=== PATIENT | female | born 1950 | race Caucasian/White ===

== ENCOUNTER 2018-12-12 13:00 | Inpatient (IN) | payer OTHER ==
[~2018-12-12] VITALS: Ht 157.5 cm; Wt 65.3 kg
[2018-12-12] MEDS ORDERED: GLIPIZIDE ER2.5 MG (13:32)
[2018-12-12] MEDS ORDERED: GLUCOTROL10 MG (13:32)
[2018-12-12] MEDS ORDERED: SYNTHROID75 MCG (13:32)
--- NOTE | 2018-12-12 13:32 | NUR ---
PACIENTE ALERTA Y ORIENTADA EN CONCHIS ESFERAS REFIERE DOLOR ABDOMINAL HACE CHEUNG. PACIENTE DIAGNOSTICADA RECIENTEMENTE CON CANCER DE COLON. PACIENTE DE DR SCOTT CEDEÑO.
[2018-12-12] MEDS ORDERED: COZAAR25 MG (13:33)
--- NOTE | 2018-12-12 17:19 | NUR ---
SE EDUCA A PTE SOBRE [place] MEDICO ESTA REFIERE ENTENDER. SE PAPITO MUESTRAS DE LABORATORIO UTILIZANDO MEDIDAS ASEPTICAS. SE NOTIFICA ESTUDIO DE PLACA PENDIENTE A REALIZAR.
[2018-12-19] MEDS ORDERED: PERCOCET 5-3251 EACH PO (10:49)
[2018-12-19] MEDS ORDERED: HYOSCYAMINE0.125 M1 SL (10:50)
[2018-12-19] MEDS ORDERED: INTESTINEX680 M1 PO (10:50)
== END 2018-12-19 12:44 | disposition home or self-care (01) | DRG 330 ==
LOC: ER 13:00 → SURG 16:52 → SEC-K 16:52 → SURG 17:52
PROVIDERS: ADMIT Surgery
PROC: 07TB4ZZ Resection of Mesenteric Lymphatic, Percutaneous Endoscopic Approach (ICD-10-PCS; 2018-12-14)
PROC: 0DTF4ZZ Resection of Right Large Intestine, Percutaneous Endoscopic Approach (ICD-10-PCS; principal; 2018-12-14 13:30)
DX: C18.2 Malignant neoplasm of ascending colon (principal); K56.690 Other partial intestinal obstruction; R50.82 Postprocedural fever; R59.0 Localized enlarged lymph nodes; I10 Essential (primary) hypertension; E03.8 Other specified hypothyroidism; E11.65 Type 2 diabetes mellitus with hyperglycemia; E78.49 Other hyperlipidemia

== ENCOUNTER 2020-01-04 10:16 | Day surgery (SDC) | payer OTHER ==
[~2020-01-04 10:16] MED LIST: COZAAR25 MG; GLIPIZIDE ER2.5 MG; GLUCOTROL10 MG; HYOSCYAMINE0.125 M1 SL; INTESTINEX680 M1 PO; PERCOCET 5-3251 EACH PO; SYNTHROID75 MCG
== END 2020-01-04 14:50 | disposition home or self-care (01) ==
LOC: AMB-ENDOS 10:16
PROVIDERS: ATTEND Surgery
DX: D12.5 Benign neoplasm of sigmoid colon (principal); K64.8 Other hemorrhoids